=== PATIENT | female | born 1970 | race Caucasian/White ===

== ENCOUNTER 2017-03-25 14:52 | Emergency (ER) | payer OTHER ==
--- NOTE | 2017-03-25 15:05 | EDPHY ---
H & P Time Seen by Provider: 03/25/17 15:02 HPI/ROS: CHIEF COMPLAINT: Shortness of breath HISTORY OF PRESENT ILLNESS: The patient is a 46-year-old female with a history of smoking and bipolar disorder who presents to the emergency department with shortness of breath. Her symptoms started 4 days ago. She has a significant cough. This is nonproductive. She has mild discomfort when she coughs. She reports subjective fever at home. No fevers or chills. No chest pain at rest. No nausea or vomiting. Patient has had a previous diagnosis of pneumonia in the past. REVIEW OF SYSTEMS: My complete review of systems is negative except as mentioned in the HPI. Past Medical/Surgical History: Includes hypertension, high cholesterol, hypothyroidism, schizoaffective disorder, bipolar disorder, chronic pain, pneumonia Social history: The patient smokes Past surgical history: Smoking Status: Current every day smoker Physical Exam: Vitals noted. Afebrile. O2 saturation 90%. GENERAL: No acute distress, alert. HEENT: Eyes normal to inspection, normal pharynx, no signs of dehydration. NECK: No thyromegaly, no lymphadenopathy, supple. RESPIRATORY: Coarse BS bilaterally, scattered wheezing. CVS: Regular rate and rhythm, no rubs, murmurs, or gallops. ABDOMEN: Soft, nontender, nondistended, no organomegaly. BACK: Normal to inspection, no CVA tenderness. SKIN: Normal color, no rash, warm, dry. No pallor. EXTREMITIES: No pedal edema, no calf tenderness, no Homans sign or cords, no joint swelling. NEURO/PSYCH: Alert and oriented x3, normal mood and affect, normal motor sensory exam. No obvious cranial nerve deficit. Constitutional: Initial Vital Signs Temperature (C) 37.0 C 03/25/17 15:06 Heart Rate 99 03/25/17 15:06 Respiratory Rate 24 H 03/25/17 15:06 Blood Pressure 145/94 H 03/25/17 15:06 O2 Sat (%) 90 L 03/25/17 15:06 O2 Delivery Mode Room Air O2 (L/minute) 2 Allergies/Adverse Reactions: olanzapine [From Zyprexa] Allergy (Severe, Verified 03/25/17 15:04) Anaphylaxis adhesive tape Allergy (Intermediate, Verified 03/25/17 15:04) Rash morphine Allergy (Intermediate, Verified 03/25/17 15:04) Hives Home Medications: Medication Instructions Recorded ASPIRIN 10/11/15 Atropine Sulfate 10/11/15 Clozapine 10/11/15 Depakote ER 500 MG (*) 10/11/15 LEVOTHYROXINE SODIUM 10/11/15 [place] Carbonate ER 10/11/15 Propranolol Sr 10/11/15 SIMVASTATIN 10/11/15 metFORMIN HCL 10/11/15 levOFLOXACIN [Levaquin] 750 mg PO DAILY #10 tab 03/25/17 predniSONE 20 mg PO DAILY 4 Days tab 03/25/17 Medical Decision Making - Diagnostics Imaging Results: Imaging Impressions Chest X-Ray 03/25/17 15:21 Impression: Bronchitis with indistinct left basilar opacities that could be related to atelectasis and/or pneumonia. ED Course/Re-evaluation: In the emergency department discussed plan with the patient. I answered all her questions. An IV was placed. Laboratory studies, EKG and chest x-ray were obtained. The patient was given a DuoNeb and Solu-Medrol for her noted wheezing. I rechecked the patient. She states she felt better after receiving the DuoNeb. She still had mild wheezing but her aeration improved. Her white count was normal. Chemistry panel was unremarkable. BNP negative. Influenza pending. Chest x-ray: Please refer the dictated report. Patient has bronchitis with left basilar opacities versus atelectasis. 16 19: The patient states she is feeling better. Still with scattered wheezing. Albuterol neb given. Pt given levaquin 750 mg orally. 16 15: The patient states she is feeling better. On exam she appears to breathing easily with no respiratory distress. Oxygen saturation is 93%. She still has scattered wheezing. She is given a repeat albuterol neb. 17 11: The patient is feeling much better. She has no respiratory distress on exam. Minimal wheezes. Patient was given warnings prior to leaving. She will return with worsening symptoms. She was given a prescription of prednisone and Levaquin. The patient was also given a take-home albuterol inhaler. Her influenza PCR is pending. 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 She has an infiltrate on chest x-ray which is being treated with Levaquin. She is 4 days into her illness and I do not think Tamiflu would help her condition. Differential Diagnosis: My differential includes but is not limited to bronchitis, pneumonia, pulmonary embolus, CHF, empyema, ACS, bacteremia, sepsis, reactive airway disease, influenza - Data Points Laboratory Results: Laboratory Results 03/25/17 15:35 03/25/17 15:35 03/25/17 03/25/17 03/25/17 15:35 15:35 15:35 WBC 5.83 10^3/uL 10^3/uL (3.80-9.50) RBC 4.69 10^6/uL 10^6/uL (4.18-5.33) Hgb 14.0 g/dL g/dL (12.6-16.3) Hct 42.2 % % (38.0-47.0) MCV 90.0 fL fL (81.5-99.8) MCH 29.9 pg pg (27.9-34.1) MCHC 33.2 g/dL g/dL (32.4-36.7) RDW 13.0 % % (11.5-15.2) Plt Count 223 10^3/uL 10^3/uL (150-400) MPV 9.9 fL fL (8.7-11.7) Neut % (Auto) 53.9 % % (39.3-74.2) Lymph % (Auto) 34.6 % % (15.0-45.0) [place] % (Auto) 7.9 % % (4.5-13.0) Eos % (Auto) 3.1 % % (0.6-7.6) Baso % (Auto) 0.2 % L % (0.3-1.7) Nucleat RBC Rel Count 0.0 % % (0.0-0.2) Absolute Neuts (auto) 3.14 10^3/uL 10^3/uL (1.70-6.50) Absolute Lymphs (auto) 2.02 10^3/uL 10^3/uL (1.00-3.00) Absolute Monos (auto) 0.46 10^3/uL 10^3/uL (0.30-0.80) Absolute Eos (auto) 0.18 10^3/uL 10^3/uL (0.03-0.40) Absolute Basos (auto) 0.01 10^3/uL L 10^3/uL (0.02-0.10) Absolute Nucleated RBC 0.00 10^3/uL 10^3/uL (0-0.01) Immature Gran % 0.3 % % (0.0-1.1) Immature Gran # 0.02 10^3/uL 10^3/uL (0.00-0.10) Sodium 139 mEq/L mEq/L (135-145) Potassium 5.1 mEq/L mEq/L (3.5-5.2) Chloride 102 mEq/L mEq/L (97-110) Carbon Dioxide 22 mEq/l mEq/l (22-31) Anion Gap 15 mEq/L mEq/L (8-16) BUN 9 mg/dL mg/dL (7-23) Creatinine 0.6 mg/dL mg/dL (0.6-1.0) Estimated GFR > 60 Glucose 179 mg/dL H mg/dL (70-100) Calcium 9.8 mg/dL mg/dL (8.5-10.4) NT-Pro-B Natriuret Pep 37 pg/mL pg/mL (0-125) Nasal Influenza A PCR NEGATIVE FOR FLU A (NEGATIVE) Nasal Influenza B PCR NEGATIVE FOR FLU B (NEGATIVE) Medications Given: Discontinued Medications Albuterol (Proventil Neb) 3 ml IH EDNOW ONE Stop: 03/25/17 16:23 Last Admin: 03/25/17 16:31 Dose: 3 ml Albuterol (Proventil Neb) 3 ml IH EDNOW ONE Stop: 03/25/17 16:50 Last Admin: 03/25/17 16:55 Dose: 3 ml Albuterol Sulfate (Proventil Inh Prepack) 1 mdi TAKEHOME EDNOW ONE Stop: 03/25/17 16:23 Last Admin: 03/25/17 16:33 Dose: 1 mdi Albuterol/Ipratropium (Duoneb) 3 ml IH EDNOW ONE Stop: 03/25/17 15:14 Last Admin: 03/25/17 15:20 Dose: 3 ml Levofloxacin (Levaquin) 750 mg PO EDNOW ONE PRN Reason: Protocol Stop: 03/25/17 16:23 Last Admin: 03/25/17 16:30 Dose: 750 mg Methylprednisolone Sodium Succinate (Solu-Medrol) 125 mg IVP EDNOW ONE Stop: 03/25/17 15:21 Last Admin: 03/25/17 15:49 Dose: 125 mg Departure - Departure Disposition: Home, Routine, Self-Care Clinical Impression: Shortness of breath Dyspnea Qualifiers: Dyspnea type: shortness of breath Qualified Code(s): R06.02 - Shortness of breath Pneumonia Qualifiers: Pneumonia type: due to unspecified organism Laterality: left Lung location: lower lobe of lung Qualified Code(s): J18.1 - Lobar pneumonia, unspecified organism Condition: Good Instructions: Prednisone (By mouth), Levofloxacin (By mouth), Dyspnea (ED), Pneumonia (ED) Additional Instructions: Take your entire course of antibiotics. Return with increasing shortness of breath, persistent fever, inability to tolerate your antibiotics or any other concerns. Referrals: Cory Mixon MD [Primary Care Provider] - 2-3 days without fail Prescriptions: levOFLOXACIN [Levaquin] 750 mg PO DAILY #10 tab predniSONE 20 mg PO DAILY 4 Days tab
[2017-03-25 15:09] VITALS: TEMP 98.6
[2017-03-25] MEDS ORDERED: IPRATROPIUM/ALBUTEROL 3 ML DEYVIAL IH ONE (15:13)
[2017-03-25] MEDS ORDERED: methylPREDNISolone SOD SUCC 125 MG/2 ML VIAL IVP ONE (15:20)
[2017-03-25 15:40] LABS: PLATELET COUNT 223 10^3/uL (150-400)
[2017-03-25] MEDS ORDERED: ALBUTEROL 3 ML DEYVIAL IH ONE ×2 (16:22→16:49)
[2017-03-25] MEDS ORDERED: ALBUTEROL INH PREPACK MDI TAKEHOME ONE (16:22)
[2017-03-25 16:36] VITALS: O2SAT 90
[2017-03-25 17:40] VITALS: BP 123/79; PULSE 100; RESP 18
== END 2017-03-25 17:09 | disposition home or self-care (01) ==
LOC: CED 14:52
DX: J18.9 Pneumonia, unspecified organism (principal); F17.200 Nicotine dependence, unspecified, uncomplicated; I10 Essential (primary) hypertension; Z79.82 Long term (current) use of aspirin
CPT/HCPCS: 71046; 96374; 99284; J2930; J7613; 80048-PO; 83880-PO; 85025-PO